=== PATIENT | male | born 1940 | race Asian ===

== ENCOUNTER 2018-12-20 13:44 | Emergency (ER) | payer OTHER ==
[~2018-12-20] VITALS: Ht 177.8 cm; Wt 70.3 kg
[2018-12-20 14:24] LABS: PLATELET COUNT 272 K/uL (142-355)
[2018-12-20 14:46] LABS: POTASSIUM 3.5 mmol/L (3.6-5.2); SODIUM 140 mmol/L (136-145)
[2018-12-20 16:24] VITALS: BP 120/66; TEMP 97.7
== END 2018-12-20 16:28 | disposition home or self-care (01) ==
LOC: ED 13:44
PROVIDERS: Family Medicine
DX: R07.89 Other chest pain (principal); K29.60 Other gastritis without bleeding; E87.6 Hypokalemia
CPT/HCPCS: 80053; 81000; 82550; 84484; 85027; 93005; 99283

== ENCOUNTER 2019-03-14 09:49 | Emergency (ER) | payer OTHER ==
[~2019-03-14] VITALS: Ht 177.8 cm; Wt 70.3 kg
[2019-03-14 11:30] VITALS: BP 170/90; TEMP 98
== END 2019-03-14 11:35 | disposition home or self-care (01) ==
LOC: ED 09:49
DX: M16.12 Unilateral primary osteoarthritis, left hip (principal)
CPT/HCPCS: 96372; 99283; J1885; J2360